=== PATIENT | female | born 1990 | race African-American/Black ===

== ENCOUNTER 2018-09-03 18:16 | Emergency (ER) | payer OTHER ==
[~2018-09-03] VITALS: Ht 165.1 cm; Wt 79.8 kg
[2018-09-03 18:31] VITALS: Ht 165.1 cm; Wt 79.8 kg
[2018-09-03 20:24] VITALS: BP 117/65
== END 2018-09-03 20:24 | disposition home or self-care (01) ==
LOC: ED 18:16
DX: S61.012A Laceration without foreign body of left thumb without damage to nail, initial encounter (principal); J45.909 Unspecified asthma, uncomplicated; W54.0XXA Bitten by dog, initial encounter; Y93.89 Activity, other specified; Y92.89 Other specified places as the place of occurrence of the external cause; Y99.8 Other external cause status
CPT/HCPCS: 90715